=== PATIENT | female | born 1965 | race Caucasian/White ===

== ENCOUNTER 2022-05-03 21:52 | Emergency (ER) | payer SELFPAY ==
[2022-05-03 23:08] LABS: #Basophils 0.1 10x3/uL (0.0-0.2); #Eosinphils 0.2 10x3/uL (0.0-0.5); #Monocytes 0.7 10x3/uL (0.0-1.1); %Basophils 0.5 % (0.0-2.0); %Eosinophils 2.4 % (0.0-6.0); %Lymphocytes 25.7 % (18.0-47.0); %Monocytes 7.4 % (0.0-10.0); %Neutrophils 63.7 % (40.0-75.0); Hemoglobin 13.1 g/dL (12.0-15.5); Mean Corpuscular HGB CONC 32.5 g/dL (32.0-36.0); Mean Corpuscular Volume 95.3 fl (81.6-98.3); Mean Platelet Volume 10.2 fl (7.4-10.4); Platelet Count 281 10x3/uL (150-450); Red Blood Cell (RBC) Count 4.23 10x6/uL (3.90-5.03); White Blood Cell (WBC) Count 9.4 10x3/uL (3.5-10.5)
[2022-05-03 23:11] LABS: Bilirubin Neg (Negative); Blood, Urine 10 (Negative); Clarity Sl. Cloudy (Clear); Glucose, Urine (Dipstick) Normal (Negative); Ketone, Urine Negative (Negative); Leukocyte Negative (Negative); Nitrite Negative (Negative); Protein, Urine (Dipstick) 15 mg/dl (Neg-Trace); Urobilinogen Normal mg/dL (Less than 2)
[2022-05-03 23:21] LABS: ALT (SGPT) 12 U/L (8-55); AST (SGOT) 16 U/L (5-34); Albumin 3.8 g/dL (3.5-5.0); Alkaline Phosphatase 114 U/L (40-110); Anion Gap 14 mmol/L (10-20); BUN (Urea Nitrogen) 16 mg/dL (9.8-20.1); Bilirubin, Total 0.4 mg/dL (0.2-1.2); CK (CPK) 74 U/L (29-168); Calc. Creatinine Clearance 0 mL/min (70-130); Calcium 9.6 mg/dL (7.8-10.44); Carbon Dioxide 27 mmol/L (22-29); Chloride 106 mmol/L (98-107); Estimated GFR 100; Globulin 3.2 g/dL (2.4-3.5); Glucose 164 mg/dL (70-105); Potassium 3.5 mmol/L (3.5-5.1); Sodium 143 mmol/L (136-145)
[2022-05-03 23:24] LABS: Bacteria/HPF Rare-Few HPF (None Seen); Calcium Oxalate Crystals 4+ HPF (None Seen); RBC/HPF 0-3 HPF (0-3); Squamous Epithelial 0-3 HPF (0-3)
[2022-05-03 23:33] LABS: SARS-CoV-2 NAA Rapid Test Not Detected (NotDetected)
[2022-05-04] MEDS ORDERED: Aspirin Chewable 81 MG TAB ONE (00:02)
[2022-05-04] MEDS ORDERED: Azithromycin 500 MG VIAL ONE (00:16)
[2022-05-04] MEDS ORDERED: cefTRIAXone\\ROCEPHIN 1 GM VIAL ONE (00:16)
== END 2022-05-04 01:52 | disposition home or self-care (01) ==
LOC: CSHERS 21:52
DX: J18.9 Pneumonia, unspecified organism (principal); E66.9 Obesity, unspecified; J45.909 Unspecified asthma, uncomplicated; Z79.899 Other long term (current) drug therapy; Z20.822 Contact with and (suspected) exposure to COVID-19
CPT/HCPCS: 36415; 71045; 81003; 81015; 82550; 83605; 83880; 84443; 84484; 85025; 93005; 96365; 96375; J0456; J0696

== ENCOUNTER 2022-07-18 15:19 | Outpatient (CLI) | payer BC | END 2022-07-18 15:20 | disposition home or self-care (01) | LOC: CSHMRI 15:19 | PROVIDERS: ATTEND Orthopaedic Surgery | DX: M23.91 Unspecified internal derangement of right knee (principal); S83.241A Other tear of medial meniscus, current injury, right knee, initial encounter; M94.261 Chondromalacia, right knee ==

== ENCOUNTER 2022-09-21 13:33 | Outpatient (CLI) | payer BC | END 2022-09-21 13:34 | disposition home or self-care (01) | LOC: CSHULT 13:33 | PROVIDERS: ATTEND Orthopaedic Surgery Hand Surgery | DX: M75.22 Bicipital tendinitis, left shoulder (principal); M25.422 Effusion, left elbow | CPT/HCPCS: 76999 ==

== ENCOUNTER 2025-05-08 09:21 | Outpatient (CLI) | payer MEDICARE, MEDICAID | END 2025-05-08 09:22 | disposition home or self-care (01) | LOC: CSHSLEEP 09:21 | PROVIDERS: ATTEND Internal Medicine | DX: G47.30 Sleep apnea, unspecified (principal); K21.9 Gastro-esophageal reflux disease without esophagitis; E66.9 Obesity, unspecified; Z68.42 Body mass index [BMI] 45.0-49.9, adult | CPT/HCPCS: 95810 ==